=== PATIENT | male | born 1950 | race Caucasian/White ===

== ENCOUNTER 2021-09-30 05:19 | Inpatient (IN) | payer MEDICARE ==
[~2021-09-30] VITALS: Ht 180.3 cm; Wt 78.0 kg
[2021-09-30 06:41] LABS: BASOPHIL 0.7 % (0-2); EOSINOPHIL 2.7 % (0-7); HGB 17.8 g/dl (13.2-18.0); MCHC 33.6 g/dL (32.0-36.0); MCV 98.1 fL (78.0-100.0); MONOCYTE 12.2 % (0-12); MPV 12.6 fL (6.0-9.5); NEUTROPHIL 57.1 % (41-80); NRBC 0; PLT 169 K/uL (150-400); RDW 13.8 % (11.5-14.0); WBC 6.7 K/uL (4.0-10.5)
[2021-09-30 06:43] LABS: POTASSIUM 4.1 mmol/L (3.5-5.1)
[2021-09-30 06:51] LABS: BILIRUBIN NEGATIVE (NEGATIVE); BLOOD NEGATIVE Ery/uL (NEGATIVE); CLARITY CLEAR (CLEAR); COLOR YELLOW (YELLOW); GLUCOSE (U) NORMAL (NORMAL); LEUKOCYTES NEGATIVE Leu/uL (NEGATIVE); NITRITE NEGATIVE (NEGATIVE); PROTEIN NEGATIVE (NEGATIVE); SPECIFIC GRAVITY 1.025 (1.001-1.030); UROBILINOGEN 0.2 mg/dL (0.2-1.0)
[2021-09-30] MEDS ORDERED: GABAPENTIN600 MG PO (11:48)
[2021-09-30] MEDS ORDERED: METOPROLOL SUCC50 MG PO (11:49)
[2021-09-30] MEDS ORDERED: PANTOPRAZOLE SO40 MG PO (11:50)
[2021-09-30] MEDS ORDERED: CITALOPRAM HBR10 MG PO (11:50)
[2021-09-30] MEDS ORDERED: AMLODIPINE BESYL5 MG PO (11:50)
--- NOTE | 2021-09-30 18:28 | NUR ---
PT OXYGEN SATURATION LOW ON MONITOR READING BETWEEN 85-87 ARMANDO IN RESPIRATORY CALLED AND FIO2 WAS INCREASED FROM 50-100% READING OF BLOOD PRESSURE ON THE MONITOR WAS (33) 1515 CHRISTIAN GANDHI WENT INTO PT ROOM AND HAD BLOOD PRESSURE RE-TAKEN NEWEST PRESSURE 50/33 MAP 36. MD GUPTA WAS NOTIFIED AND 1000ML LR BOLUS WAS STARTED AT THIS TIME LEVOPHED WAS STARTED AT 20MCG. DIPRIVAN AND FENTANYL WERE STOPPED. DUE TO DECREASED BREATH SOUNDS ON BILATERAL LOWER LOBES MD BENJAMIN USED GLIDESCOPE TO DETERMINE IF ET TUBE WAS MISPLACED. MD BENJAMIN VERIFES THAT TUBE IS IN CORRECT PLACE. CHEST X RAY IS ORDERED. PT BECAME BRADYCARDIC BETWEEN 40-50 BPM WITH LOWEST READING 39 BPM EKG WAS ORDERED WITH READING OF SINUS BRADYCARDIA CASSIDY WAS NOTIFIED. 1625 PT STABLE, WAS BEGINNING TO WAKE AND WAS UNSETTLED, DIPRIVAN STARTED AT 20MCG FENTANYL 50MCG AND LEVOPHED AT 8MCG 1745 A LINE WAS PLACED BY DR BENJAMIN 1815 LEVOPHED DECREASED TO 6MCG FENTANYL INCREASED TO 100MCG PT WAS BEGINNING TO GET RESTLESS AND WAS MOVING ARMS AND LEGS IN BED.
--- NOTE | 2021-09-30 18:57 | NUR ---
HOURLY VITALS PRINTED ON CHART
[2021-10-01 04:03] LABS: BASOPHIL 0.1 % (0-2); EOSINOPHIL 0 % (0-7); HCT 50.2 % (42.0-52.0); HGB 17.4 g/dl (13.2-18.0); LYMPHOCYTE 5.7 % (15-48); MCH 33.5 pg (25.0-31.0); MCHC 34.7 g/dL (32.0-36.0); MCV 96.5 fL (78.0-100.0); MONOCYTE 4.3 % (0-12); MPV 12.3 fL (6.0-9.5); NEUTROPHIL 89.6 % (41-80); NRBC 0; PLT 212 K/uL (150-400)
[2021-10-01 04:09] LABS: WBC 14.1 K/uL (4.0-10.5)
[2021-10-01 04:35] LABS: ALBUMIN 2.7 g/dL (3.4-5.0); BILIRUBIN - TOTAL 0.3 mg/dL (0.2-1.0); BUN/CREAT RATIO (CALC) 18.8 RATIO; CREATININE 1.28 mg/dL (0.67-1.17); GLOBULIN (CALCULATION) 3.4 g/dL; TOTAL PROTEIN 6.1 g/dL (6.4-8.2)
--- NOTE | 2021-10-02 05:04 | NUR ---
LATE ENTRY: AFTER GIVING PATIENT BATH O2 SATS DROPPED INTO 80S RESP AND COSRIC NOTIFIED PATIENT EMILY TO HAVE THICK YELLOW/GREEN/CASTRO SPUTUM FRON INLINE SUCTION, SPUTUM CULTURE COLLECTED. X RAY OBTAINED TUBE PULLED BACK 2 CM PER MD. ET TUBE CURRENTLY NOW AT 25 @ LIP.
[2021-10-02 08:03] LABS: BASOPHIL 0.1 % (0-2); EOSINOPHIL 0 % (0-7); HCT 47.2 % (42.0-52.0); HGB 15.9 g/dl (13.2-18.0); LYMPHOCYTE 4.1 % (15-48); MCH 32.9 pg (25.0-31.0); MCHC 33.7 g/dL (32.0-36.0); MCV 97.5 fL (78.0-100.0); MONOCYTE 6.2 % (0-12); MPV 12.2 fL (6.0-9.5); NEUTROPHIL 89.1 % (41-80); NRBC 0; PLT 172 K/uL (150-400); RBC 4.84 M/uL (4.70-6.00); RDW 14.3 % (11.5-14.0); WBC 16.3 K/uL (4.0-10.5)
[2021-10-02 08:14] LABS: BUN/CREAT RATIO (CALC) 28.6 RATIO; CREATININE 1.19 mg/dL (0.67-1.17); POTASSIUM 4.2 mmol/L (3.5-5.1)
[2021-10-03 06:02] LABS: BASOPHIL 0.1 % (0-2); EOSINOPHIL 0 % (0-7); HCT 45.7 % (42.0-52.0); HGB 15.6 g/dl (13.2-18.0); LYMPHOCYTE 6.7 % (15-48); MCH 33.3 pg (25.0-31.0); MCHC 34.1 g/dL (32.0-36.0); MCV 97.4 fL (78.0-100.0); MONOCYTE 9.3 % (0-12); MPV 12.7 fL (6.0-9.5); NEUTROPHIL 83.6 % (41-80); NRBC 0; PLT 159 K/uL (150-400); RBC 4.69 M/uL (4.70-6.00); RDW 14.3 % (11.5-14.0)
[2021-10-03 06:23] LABS: ALBUMIN 2.6 g/dL (3.4-5.0); BILIRUBIN - TOTAL 0.5 mg/dL (0.2-1.0); BUN/CREAT RATIO (CALC) 30.4 RATIO; CREATININE 1.02 mg/dL (0.67-1.17); GLOBULIN (CALCULATION) 3.2 g/dL; POTASSIUM 4.2 mmol/L (3.5-5.1); TOTAL PROTEIN 5.8 g/dL (6.4-8.2)
--- NOTE | 2021-10-03 14:47 | NUR ---
0800 CALLED ANTHONY HIS THIS AM TO GET CONSENT FOR CTA WITH CONTRAST, BECAUSE HIS O2 SATS WERE CONTINUING TO DROP. 1000 SAGRARIO RN, SHADY GANDHI, ARMANDO TALAMANTES TOOK HIM TO GET CTA,PT TOLERATED PROCEDURE WELL 1127 DR JIMENEZ CAME AND DID A BEDSIDE BRONCH, HE DID SAY HE DID GET A FEW PLUGS BUT DIDNT THINK HE GOT THE DEEP ONES THAT ARE CAUSING SATS TO DROP, SAT DID IMPROVE JUST A LITTLE, SATS 92 TO 94 %
[2021-10-04 06:40] LABS: BASOPHIL 0.1 % (0-2); EOSINOPHIL 0 % (0-7); HCT 44.3 % (42.0-52.0); HGB 15.2 g/dl (13.2-18.0); LYMPHOCYTE 6.4 % (15-48); MCH 33.3 pg (25.0-31.0); MCHC 34.3 g/dL (32.0-36.0); MCV 96.9 fL (78.0-100.0); MONOCYTE 11.7 % (0-12); MPV 12.7 fL (6.0-9.5); NEUTROPHIL 81.4 % (41-80); NRBC 0; PLT 200 K/uL (150-400); RBC 4.57 M/uL (4.70-6.00); RDW 14.3 % (11.5-14.0); WBC 9.9 K/uL (4.0-10.5)
[2021-10-04 13:31] LABS: C-REACTIVE PROTEIN 4.8 mg/dL (<=0.90); CREATININE 0.93 mg/dL (0.67-1.17); POTASSIUM 4.2 mmol/L (3.5-5.1)
[2021-10-05 05:15] LABS: BASOPHIL 0.4 % (0-2); EOSINOPHIL 0 % (0-7); HCT 44.4 % (42.0-52.0); HGB 15.6 g/dl (13.2-18.0); LYMPHOCYTE 4.7 % (15-48); MCH 35.1 pg (25.0-31.0); MCHC 35.1 g/dL (32.0-36.0); MONOCYTE 12.5 % (0-12); NEUTROPHIL 81.3 % (41-80); NRBC 0; PLT 149 K/uL (150-400); RBC 4.44 M/uL (4.70-6.00); RDW 14.2 % (11.5-14.0); WBC 12.5 K/uL (4.0-10.5)
[2021-10-05 05:25] LABS: BUN/CREAT RATIO (CALC) 29.5 RATIO; CREATININE 0.78 mg/dL (0.67-1.17); POTASSIUM 4.8 mmol/L (3.5-5.1)
[2021-10-05 14:38] LABS: BUN/CREAT RATIO (CALC) 12.8 RATIO; CREATININE 1.88 mg/dL (0.67-1.17); POTASSIUM 4.5 mmol/L (3.5-5.1)
--- NOTE | 2021-10-05 18:42 | NUR ---
1155 ET TUBE WITH CUFF LEAK. PATIENT PREPARED FOR REINTUBATION. 50 MG ROMAZICON GIVE, FENTANYL AT 300 MCGS\HR AND DIPRIVAN AT 50 MCGS\HR. ANESTHESIA ASSISTED BY RESPIRATORY THERAPY REINTUBATED PATIENT WITH AN 8.5 ET TUBE WITHOUT DIFFICULTY. TUBE SECURED. OG TUBE PLACED AFTER ET TUBE. BOTH VERIFIED BY XRAY TO BE IN CORRECT PLACEMENT.
[2021-10-06 04:29] LABS: BASOPHIL 0.3 % (0-2); EOSINOPHIL 0.7 % (0-7); HCT 44.2 % (42.0-52.0); HGB 14.6 g/dl (13.2-18.0); LYMPHOCYTE 3.8 % (15-48); MCH 33.3 pg (25.0-31.0); MCV 100.9 fL (78.0-100.0); MONOCYTE 7.8 % (0-12); MPV 12.6 fL (6.0-9.5); NEUTROPHIL 86.3 % (41-80); NRBC 0; PLT 147 K/uL (150-400); RBC 4.38 M/uL (4.70-6.00); RDW 14.2 % (11.5-14.0)
[2021-10-06 04:42] LABS: BUN 29 mg/dL (7-18); BUN/CREAT RATIO (CALC) 27.9 RATIO; C-REACTIVE PROTEIN >18.00 mg/dL (<=0.90); CHLORIDE 106 mmol/L (98-107); CO2 (BICARBONATE) 25 mmol/L (21-32); CREATININE 1.04 mg/dL (0.67-1.17); GLUCOSE 137 mg/dL (74-106); POTASSIUM 4.9 mmol/L (3.5-5.1)
[2021-10-06 17:31] LABS: BASOPHIL 0.5 % (0-2); EOSINOPHIL 0 % (0-7); HCT 43.7 % (42.0-52.0); HGB 14.3 g/dl (13.2-18.0); LYMPHOCYTE 3.8 % (15-48); MCH 33.3 pg (25.0-31.0); MCHC 32.7 g/dL (32.0-36.0); MCV 101.6 fL (78.0-100.0); MONOCYTE 9.5 % (0-12); MPV 12.9 fL (6.0-9.5); NEUTROPHIL 83.4 % (41-80); NRBC 0; PLT 156 K/uL (150-400); RDW 14.6 % (11.5-14.0); WBC 14.2 K/uL (4.0-10.5)
[2021-10-06 17:45] LABS: ALBUMIN 1.7 g/dL (3.4-5.0); BILIRUBIN - TOTAL 0.3 mg/dL (0.2-1.0); CREATININE 1.04 mg/dL (0.67-1.17); GLOBULIN (CALCULATION) 3.9 g/dL; POTASSIUM 4.8 mmol/L (3.5-5.1); TOTAL PROTEIN 5.6 g/dL (6.4-8.2)
--- NOTE | 2021-10-06 18:29 | NUR ---
APPROX 1645, RN AND AID WAS CLEANING PATIENT UP FROM BM AND CHANGING LINENS. ROLLED PATIENT TO THE RIGHT SIDE AND O2 SAT DROPPED RAPIDLY TO 40%, PATIENT TURNED PURPLE AND I BEGAN TO BAG THE PATIENT. AID CALLED DR AND RESPIRATORY. RAPID WAS CALLED. 2 RN CAME INTO ROOM TO ASSIST. O2SAT IMPROVED TO 100% RAPIDLY DR AND RT ARRIVED AND PLACED PATIENT BACK ONTO THE VENT WITH FIO2 AT 100% ORIGINAL SETTINGS BEFORE RAPID WERE A/C R:28 TV:500 FI02:50% P:12 PATIENT STABILIZED. APPROX 15 MINUTES PASTED AND PATIENT BEGAN WORKING AGAINST THE VENT. BP INCREASED TO 180'S AND HR TO 140'S. O2 SAT DROPED TO 60% RAPID WAS CALLED AGAIN. PATIENT RECOVERED WITH 02SAT 100% BEING BAGGED. DR ORDERED VEC TO PARALYZE PATIENT TO DECREASE STRESS. VEC WAS HUNG AND BIS SETUP WITH 40-44 READING. CHEST X-RAY WAS DONE AND ABG. SUCTIONED LARGE THICK AMOUNTS OF MUCOUS INLINE AND ORAL. PATIENT STABILIZED. HOUSE WAS PRESENT AT BOTH RAPID RESPONSE
[2021-10-07 04:32] LABS: BASOPHIL 0.6 % (0-2); EOSINOPHIL 0 % (0-7); HCT 43.4 % (42.0-52.0); LYMPHOCYTE 4.4 % (15-48); MCH 32.7 pg (25.0-31.0); MCHC 32.3 g/dL (32.0-36.0); MCV 101.4 fL (78.0-100.0); MPV 12.7 fL (6.0-9.5); NRBC 0; PLT 162 K/uL (150-400); RBC 4.28 M/uL (4.70-6.00); RDW 14.6 % (11.5-14.0); WBC 14.5 K/uL (4.0-10.5)
[2021-10-07 04:33] LABS: NEUTROPHIL 84.5 % (41-80)
[2021-10-07 04:55] LABS: ALBUMIN 1.7 g/dL (3.4-5.0); BILIRUBIN - TOTAL 0.3 mg/dL (0.2-1.0); BUN/CREAT RATIO (CALC) 28.9 RATIO; CREATININE 0.83 mg/dL (0.67-1.17); GLOBULIN (CALCULATION) 3.7 g/dL; POTASSIUM 4.9 mmol/L (3.5-5.1); TOTAL PROTEIN 5.4 g/dL (6.4-8.2)
[2021-10-08 03:42] LABS: BASOPHIL 0.8 % (0-2); EOSINOPHIL 0 % (0-7); HCT 40.5 % (42.0-52.0); HGB 13.2 g/dl (13.2-18.0); LYMPHOCYTE 5.8 % (15-48); MCH 32.4 pg (25.0-31.0); MCHC 32.6 g/dL (32.0-36.0); MCV 99.3 fL (78.0-100.0); MONOCYTE 6.4 % (0-12); MPV 11.8 fL (6.0-9.5); NEUTROPHIL 83.1 % (41-80); NRBC 0; PLT 154 K/uL (150-400); RBC 4.08 M/uL (4.70-6.00); RDW 14.6 % (11.5-14.0); WBC 10.1 K/uL (4.0-10.5)
[2021-10-08 03:57] LABS: BUN/CREAT RATIO (CALC) 42.6 RATIO; CREATININE 0.68 mg/dL (0.67-1.17); POTASSIUM 4.3 mmol/L (3.5-5.1)
--- NOTE | 2021-10-08 19:47 | NUR ---
ATTEMPTED SEDATION VACATION BEGINNING AT 0745. VECURONIUM DCD. VERSED DCD BETWEEN 0830 AND 0900. WEANED FENTQANYL DOWN TO 250 MCGS\MINUTE BY 1100 AND PROPOFOL GRADUALLY WEANED DOWN TO 20 MCGS\HR BY 1200. P[ATIENT BECAME AGGITATED FENTANYL RETURNED TO 300 MCGS\MINUTE, DIPRIVAN UP TO 40 MCGS AND VERSED ON AT 5 MCGS. VERSED WEANED OFF BY 1400 AND PRECEDEX DRIP STARTED AT 0.7 MCG\KGS\HR. CURRENT RASS IS -2.
[2021-10-09 06:09] LABS: BASOPHIL 1.1 % (0-2); EOSINOPHIL 0 % (0-7); HCT 47.6 % (42.0-52.0); HGB 15.9 g/dl (13.2-18.0); LYMPHOCYTE 10.5 % (15-48); MCH 32.5 pg (25.0-31.0); MCHC 33.4 g/dL (32.0-36.0); MCV 97.3 fL (78.0-100.0); MPV 12.6 fL (6.0-9.5); NEUTROPHIL 75.2 % (41-80); NRBC 0; PLT 185 K/uL (150-400); RBC 4.89 M/uL (4.70-6.00); RDW 14.2 % (11.5-14.0); WBC 8.4 K/uL (4.0-10.5)
[2021-10-09 06:32] LABS: ALBUMIN 1.8 g/dL (3.4-5.0); BILIRUBIN - TOTAL 0.4 mg/dL (0.2-1.0); BUN/CREAT RATIO (CALC) 49.4 RATIO; CREATININE 0.77 mg/dL (0.67-1.17); GLOBULIN (CALCULATION) 4.1 g/dL; POTASSIUM 4.8 mmol/L (3.5-5.1); TOTAL PROTEIN 5.9 g/dL (6.4-8.2)
[2021-10-10 07:18] LABS: HCT 45.8 % (42.0-52.0); HGB 15.7 g/dl (13.2-18.0); MCH 33.3 pg (25.0-31.0); MCHC 34.3 g/dL (32.0-36.0); MCV 97.2 fL (78.0-100.0); MPV 11.9 fL (6.0-9.5); RBC 4.71 M/uL (4.70-6.00); WBC 10.1 K/uL (4.0-10.5)
[2021-10-10 07:51] LABS: CREATININE 0.62 mg/dL (0.67-1.17); POTASSIUM 3.9 mmol/L (3.5-5.1)
[2021-10-11 09:38] LABS: BASOPHIL 0.4 % (0-2); EOSINOPHIL 2.6 % (0-7); HGB 13.6 g/dl (13.2-18.0); LYMPHOCYTE 8.4 % (15-48); MCH 33.2 pg (25.0-31.0); MCV 97.6 fL (78.0-100.0); MONOCYTE 9.4 % (0-12); PLT 147 K/uL (150-400); RDW 14.1 % (11.5-14.0)
[2021-10-11 10:02] LABS: ALBUMIN 1.3 g/dL (3.4-5.0); BILIRUBIN - TOTAL 0.4 mg/dL (0.2-1.0); BUN/CREAT RATIO (CALC) 50.7 RATIO; CREATININE 0.73 mg/dL (0.67-1.17); GLOBULIN (CALCULATION) 3.3 g/dL; MAGNESIUM 1.4 mg/dL (1.8-2.4); POTASSIUM 3.5 mmol/L (3.5-5.1); TOTAL PROTEIN 4.6 g/dL (6.4-8.2)
[2021-10-11 10:52] LABS: BAND 9 % (0-10); EOSINOPHIL(M) 3 % (0-7); LYMPHOCYTE(M) 6 % (15-48); MONOCYTE(M) 8 % (0-12); NEUTROPHILS(M) 74 % (41-80); TOTAL CELL COUNT 100
[2021-10-11 11:10] LABS: PLATELET ESTIMATE NORMAL; PLATELET MORPHOLOGY NORMAL
[2021-10-13 05:17] LABS: BASOPHIL 0.2 % (0-2); EOSINOPHIL 3.3 % (0-7); HCT 33.5 % (42.0-52.0); HGB 12.4 g/dl (13.2-18.0); LYMPHOCYTE 11.5 % (15-48); MCV 97.4 fL (78.0-100.0); MONOCYTE 8.3 % (0-12); MPV 12.4 fL (6.0-9.5); NRBC 0; PLT 144 K/uL (150-400); RBC 3.44 M/uL (4.70-6.00); RDW 14.4 % (11.5-14.0); WBC 9.6 K/uL (4.0-10.5)
[2021-10-13 06:46] LABS: BUN/CREAT RATIO (CALC) 26.9 RATIO; CREATININE 0.78 mg/dL (0.67-1.17); MAGNESIUM 1.6 mg/dL (1.8-2.4); POTASSIUM 4.1 mmol/L (3.5-5.1)
[2021-10-14 06:26] LABS: BASOPHIL 0.3 % (0-2); EOSINOPHIL 2.9 % (0-7); HCT 36.8 % (42.0-52.0); HGB 12.6 g/dl (13.2-18.0); LYMPHOCYTE 11.2 % (15-48); MCHC 34.2 g/dL (32.0-36.0); MCV 96.3 fL (78.0-100.0); MONOCYTE 9.4 % (0-12); MPV 11.6 fL (6.0-9.5); NEUTROPHIL 75.4 % (41-80); NRBC 0; PLT 141 K/uL (150-400); RBC 3.82 M/uL (4.70-6.00); WBC 10.7 K/uL (4.0-10.5)
[2021-10-14 06:50] LABS: BUN/CREAT RATIO (CALC) 25.6 RATIO; C-REACTIVE PROTEIN 14.9 mg/dL (<=0.90); CREATININE 0.86 mg/dL (0.67-1.17); POTASSIUM 4.5 mmol/L (3.5-5.1)
--- NOTE | 2021-10-14 19:40 | NUR ---
1700 ALL DRIPS TITRATED OFF BY 1330. PATIENT ON SIMV THEN PLACED ON SPONTANEOUS. SATS IN THE 90S PULLING VOLUMES ON SPONTANEOUS. ABGS DRAWN AROUND 1640. ET AND OG TUBE PULLED AT 1700. PLACED ON BIPAP. HEART RATE AND BLOOD PRESSURE BECAME ELEVATED, OXYGEN SATURATIONS IN THE HIGH 80'S TO LOW 90'S. 20 MG TRANDATE GIVEN IV THEN AN ADDITIONAL 20 MG GIVEN IV. DECISION MADE TO REINTUBATE. GLIDASCOPE IN ROOM. 20 MG ETOMIDATE GIVEN THEN 100 MG OF SUCCINYLCHOLINE GIVEN FOR INTUBATION. PATIENT BRADIED DOWN AND THEN WENT ASYSTOLE. CODE CALLED SEE CODE SHEET
--- NOTE | 2021-10-14 20:26 | NUR ---
2010PATIENT RELEASED TO [facility]
== END 2021-10-14 22:50 | disposition expired | DRG 207 ==
LOC: FER 05:19 → FICU 07:41
PROVIDERS: Emergency Medicine Emergency Medical Services; Family Medicine; Internal Medicine; Nurse Practitioner; ADMIT Allergy & Immunology Allergy
PROC: 5A1955Z Respiratory Ventilation, Greater than 96 Consecutive Hours (ICD-10-PCS; principal; 2021-09-30)
PROC: 0BH17EZ Insertion of Endotracheal Airway into Trachea, Via Natural or Artificial Opening (ICD-10-PCS; 2021-09-30)
PROC: 30233K1 Transfusion of Nonautologous Frozen Plasma into Peripheral Vein, Percutaneous Approach (ICD-10-PCS; 2021-09-30)
PROC: 3E033XZ Introduction of Vasopressor into Peripheral Vein, Percutaneous Approach (ICD-10-PCS; 2021-09-30)
PROC: 0T9B70Z Drainage of Bladder with Drainage Device, Via Natural or Artificial Opening (ICD-10-PCS; 2021-09-30)
PROC: 0B9J8ZX Drainage of Left Lower Lung Lobe, Via Natural or Artificial Opening Endoscopic, Diagnostic (ICD-10-PCS; 2021-10-03)
PROC: 3E0G76Z Introduction of Nutritional Substance into Upper GI, Via Natural or Artificial Opening (ICD-10-PCS; 2021-10-03)
PROC: XW033E5 Introduction of Remdesivir Anti-infective into Peripheral Vein, Percutaneous Approach, New Technology Group 5 (ICD-10-PCS; 2021-10-04)
PROC: 02HV33Z Insertion of Infusion Device into Superior Vena Cava, Percutaneous Approach (ICD-10-PCS; 2021-10-04)
PROC: 0B21XEZ Change Endotracheal Airway in Trachea, External Approach (ICD-10-PCS; 2021-10-05)
PROC: 5A09357 Assistance with Respiratory Ventilation, Less than 24 Consecutive Hours, Continuous Positive Airway Pressure (ICD-10-PCS; 2021-10-14)
PROC: 5A12012 Performance of Cardiac Output, Single, Manual (ICD-10-PCS; 2021-10-14)
PROC: 0BH18EZ Insertion of Endotracheal Airway into Trachea, Via Natural or Artificial Opening Endoscopic (ICD-10-PCS; 2021-10-14)
PROC: 5A1935Z Respiratory Ventilation, Less than 24 Consecutive Hours (ICD-10-PCS; 2021-10-14)
DX: U07.1 COVID-19 (principal); J12.82 Pneumonia due to coronavirus disease 2019; J96.01 Acute respiratory failure with hypoxia; J15.212 Pneumonia due to Methicillin resistant Staphylococcus aureus; J14 Pneumonia due to Hemophilus influenzae; A41.9 Sepsis, unspecified organism; R65.21 Severe sepsis with septic shock; G92.8 Other toxic encephalopathy; J44.0 Chronic obstructive pulmonary disease with (acute) lower respiratory infection; N17.9 Acute kidney failure, unspecified; E87.1 Hypo-osmolality and hyponatremia; J98.11 Atelectasis; T85.638A Leakage of other specified internal prosthetic devices, implants and grafts, initial encounter; T78.3XXA Angioneurotic edema, initial encounter; I95.9 Hypotension, unspecified; I46.9 Cardiac arrest, cause unspecified; R00.1 Bradycardia, unspecified; E11.65 Type 2 diabetes mellitus with hyperglycemia; D69.6 Thrombocytopenia, unspecified; L98.9 Disorder of the skin and subcutaneous tissue, unspecified; M54.40 Lumbago with sciatica, unspecified side; T38.0X5A Adverse effect of glucocorticoids and synthetic analogues, initial encounter; I10 Essential (primary) hypertension; E78.5 Hyperlipidemia, unspecified; E86.9 Volume depletion, unspecified; K21.9 Gastro-esophageal reflux disease without esophagitis; E66.9 Obesity, unspecified; G47.33 Obstructive sleep apnea (adult) (pediatric); D75.1 Secondary polycythemia; F32.A Depression, unspecified; Z90.49 Acquired absence of other specified parts of digestive tract; Z79.899 Other long term (current) drug therapy; Z78.1 Physical restraint status
CPT/HCPCS: 31500; 36415; 36430; 36600; 71045; 71250; 71275; 74018; 80048; 80053; 80202; 81003; 82668; 82728; 82803; 82962; 83036; 83735; 83880; 84145; 84478; 84484; 85025; 85280; 85379; 86140; 86160; 86161; 86850; 86900; 86901; 87040; 87070; 87077; 87186; 87205; 93005; 94002; 94640; 96374; 96375; C9399; J0171; J0330; J0360; J0456; J0610; J0692; J0696; J1100; J1200; J1642; J1650; J1744; J1940; J2060; J2250; J2704; J2920; J2930; J3010; J3370; J3475; J3490; J7030; J7040; J7050; J7060; J7120; P9017; Q0163; Q9967; U0002